=== PATIENT | female | born 1980 | race Native Hawaiian/Other Pacific Islander ===

== ENCOUNTER 2019-10-02 18:39 | Emergency (ER) | payer OTHER ==
[~2019-10-02] VITALS: Ht 167.6 cm; Wt 54.4 kg
[2019-10-02 18:55] LABS: PLATELET COUNT 350 K/uL (152-353)
[2019-10-02 18:59] LABS: POTASSIUM 3.7 mmol/L (3.6-5.2)
[2019-10-02 20:35] VITALS: BP 122/70; TEMP 98.1
== END 2019-10-02 20:35 | disposition home or self-care (01) ==
LOC: ED 18:39
PROVIDERS: Hospitalist
DX: J40 Bronchitis, not specified as acute or chronic (principal); J44.9 Chronic obstructive pulmonary disease, unspecified; Z20.828 Contact with and (suspected) exposure to other viral communicable diseases; Z87.891 Personal history of nicotine dependence
CPT/HCPCS: 80048; 85027; 87502; 87635; 87651; 96365; 96375; 99283; 99284; J0696; J2930; U00003

== ENCOUNTER 2020-02-04 06:10 | Emergency (ER) | payer OTHER ==
[~2020-02-04] VITALS: Ht 167.6 cm; Wt 54.4 kg
[2020-02-04 06:15] VITALS: TEMP 97.8
[2020-02-04 06:51] LABS: PLATELET COUNT 318 K/uL (152-353)
[2020-02-04 06:57] LABS: POTASSIUM 3.6 mmol/L (3.6-5.2)
[2020-02-04 08:45] VITALS: BP 118/73
== END 2020-02-04 08:46 | disposition home or self-care (01) ==
LOC: ED 06:10
PROVIDERS: Family Medicine
DX: J40 Bronchitis, not specified as acute or chronic (principal); J06.9 Acute upper respiratory infection, unspecified; R05 Cough; Z20.828 Contact with and (suspected) exposure to other viral communicable diseases
CPT/HCPCS: 80053; 82728; 85027; 85379; 87502; 87635; 87651; 94664; 96374; 99283; 99284; J2930; U0003

== ENCOUNTER 2020-02-05 08:26 | Emergency (ER) | payer OTHER ==
[~2020-02-05] VITALS: Ht 167.6 cm; Wt 54.4 kg
[2020-02-05 08:30] VITALS: TEMP 98.9
[2020-02-05 09:17] VITALS: BP 121/80
== END 2020-02-05 09:58 | disposition home or self-care (01) ==
LOC: ED 08:26
DX: J20.9 Acute bronchitis, unspecified (principal)
CPT/HCPCS: 94664; 99283

== ENCOUNTER 2020-02-22 11:33 | Emergency (ER) | payer OTHER ==
[~2020-02-22] VITALS: Ht 167.6 cm; Wt 52.2 kg
[2020-02-22 11:35] VITALS: TEMP 98.4
[2020-02-22 12:35] LABS: PLATELET COUNT 334 K/uL (152-353)
[2020-02-22 12:42] LABS: POTASSIUM 3.1 mmol/L (3.6-5.2); SODIUM 139 mmol/L (136-145)
[2020-02-22 15:00] VITALS: BP 100/62
== END 2020-02-22 15:00 | disposition home or self-care (01) ==
LOC: ED 11:33
DX: J44.1 Chronic obstructive pulmonary disease with (acute) exacerbation (principal)
CPT/HCPCS: 36600; 80053; 81025; 82805; 84484; 85027; 93005; 94664; 96374; 99284; J2930

== ENCOUNTER 2020-04-04 00:47 | Emergency (ER) | payer OTHER ==
[~2020-04-04] VITALS: Ht 167.6 cm; Wt 54.4 kg
[2020-04-04 00:47] VITALS: TEMP 97.8
[2020-04-04 01:31] VITALS: BP 106/79
== END 2020-04-04 01:32 | disposition home or self-care (01) ==
LOC: ED 00:50
DX: J44.1 Chronic obstructive pulmonary disease with (acute) exacerbation (principal)
CPT/HCPCS: 96372; 99282; J1020

== ENCOUNTER 2020-04-06 11:30 | Emergency (ER) | payer OTHER ==
[~2020-04-06] VITALS: Ht 167.6 cm; Wt 54.4 kg
[2020-04-06 11:31] VITALS: BP 126/54; TEMP 97.7
[2020-04-06 11:51] LABS: PLATELET COUNT 350 K/uL (152-353)
[2020-04-06 11:57] LABS: POTASSIUM 3.7 mmol/L (3.6-5.2)
== END 2020-04-06 13:25 | disposition home or self-care (01) ==
LOC: ED 11:30
PROVIDERS: Family Medicine
DX: J44.1 Chronic obstructive pulmonary disease with (acute) exacerbation (principal); R05 Cough
CPT/HCPCS: 80053; 85027; 94664; 99283; J1100

== ENCOUNTER 2020-09-14 15:17 | Outpatient (CLI) | payer OTHER | END 2020-09-14 19:21 | disposition home or self-care (01) | LOC: RAD 15:17 | PROVIDERS: ATTEND Nurse Practitioner Family | DX: M54.9 Dorsalgia, unspecified (principal); J44.9 Chronic obstructive pulmonary disease, unspecified; N76.0 Acute vaginitis; R31.9 Hematuria, unspecified ==

== ENCOUNTER 2021-03-15 15:57 | Emergency (ER) | payer OTHER ==
[~2021-03-15] VITALS: Ht 167.6 cm; Wt 53.5 kg
[2021-03-15 16:02] VITALS: TEMP 99.1
[2021-03-15 18:43] LABS: PLATELET COUNT 357 K/uL (152-353)
[2021-03-15 19:00] VITALS: BP 118/72
== END 2021-03-15 19:11 | disposition home or self-care (01) ==
LOC: ED 15:57
PROVIDERS: Hospitalist
DX: J18.9 Pneumonia, unspecified organism (principal); Z20.822 Contact with and (suspected) exposure to COVID-19; F17.210 Nicotine dependence, cigarettes, uncomplicated
CPT/HCPCS: 36415; 85027; 87502; 87635; 87651; 96372; 99283; J0696; J2930; U0003

== ENCOUNTER 2021-08-10 02:39 | Emergency (ER) | payer OTHER ==
[~2021-08-10] VITALS: Ht 167.6 cm; Wt 53.5 kg
[2021-08-10 03:46] LABS: PLATELET COUNT 378 K/uL (152-353)
[2021-08-10 03:50] LABS: POTASSIUM 4.9 mmol/L (3.6-5.2)
[2021-08-10 04:58] VITALS: BP 124/76; TEMP 97.1
== END 2021-08-10 04:58 | disposition home or self-care (01) ==
LOC: ED 02:39
PROVIDERS: Emergency Medicine Emergency Medical Services
DX: J44.1 Chronic obstructive pulmonary disease with (acute) exacerbation (principal); F17.210 Nicotine dependence, cigarettes, uncomplicated
CPT/HCPCS: 36415; 80048; 85027; 87040; 87077; 87185; 87186; 87205; 94664; 96360; 96361; 96365; 96375; 99284; J0696; J2930

== ENCOUNTER 2021-08-13 20:28 | Observation (INO) | payer OTHER ==
[~2021-08-13] VITALS: Ht 167.6 cm; Wt 53.1 kg
[2021-08-13 20:30] VITALS: BP 140/76; TEMP 98.7
[2021-08-13 20:56] LABS: POTASSIUM 3.6 mmol/L (3.6-5.2)
[2021-08-13 21:00] LABS: PLATELET COUNT 341 K/uL (152-353)
[2021-08-13 21:30] VITALS: BP 121/86
[2021-08-13 22:30] VITALS: BP 107/80
[2021-08-13 23:30] VITALS: BP 113/78
[2021-08-14] VITALS (8 sets, daily range): BP systolic 91–113; BP diastolic 52–81; TEMP 97.07–97.4; Ht 167.6 cm; Wt 53.1 kg
== END 2021-08-14 14:00 | disposition home or self-care (01) ==
LOC: ED 20:28 → MED/SURG 08-14 03:52
PROVIDERS: Family Medicine; ADMIT Internal Medicine; ATTEND Internal Medicine
DX: T40.1X1A Poisoning by heroin, accidental (unintentional), initial encounter (principal); Y92.89 Other specified places as the place of occurrence of the external cause; F19.20 Other psychoactive substance dependence, uncomplicated; R82.90 Unspecified abnormal findings in urine
CPT/HCPCS: 36415; 51702; 80053; 80307; 80320; 81000; 81025; 82550; 84484; 85027; 87088; 87635; 93005; 94664; 96361; 96365; 96372; 96375; 99220; 99284; G0378; J0696; J1650; J2405; J2920; J2930; J3480; U0003

== ENCOUNTER 2021-10-09 01:48 | Emergency (ER) | payer OTHER ==
[~2021-10-09] VITALS: Ht 167.6 cm; Wt 54.4 kg
[2021-10-09 05:45] VITALS: BP 103/58; TEMP 97.9
== END 2021-10-09 05:45 | disposition home or self-care (01) ==
LOC: ED 01:48
DX: J45.901 Unspecified asthma with (acute) exacerbation (principal)
CPT/HCPCS: 94664; 99283

== ENCOUNTER 2022-02-16 07:35 | Emergency (ER) | payer OTHER ==
[~2022-02-16] VITALS: Ht 167.6 cm; Wt 505.8 kg
[2022-02-16 07:35] VITALS: TEMP 98
[2022-02-16 09:35] VITALS: BP 102/78
== END 2022-02-16 09:49 | disposition still patient (30) ==
LOC: ED 07:35
PROC: 0HQFXZZ Repair Right Hand Skin, External Approach (ICD-10-PCS; principal; 2022-02-16)
PROC: 0HQDXZZ Repair Right Lower Arm Skin, External Approach (ICD-10-PCS; 2022-02-16)
DX: S60.221A Contusion of right hand, initial encounter (principal); S61.411A Laceration without foreign body of right hand, initial encounter; S51.811A Laceration without foreign body of right forearm, initial encounter; S61.511A Laceration without foreign body of right wrist, initial encounter; W22.09XA Striking against other stationary object, initial encounter; W25.XXXA Contact with sharp glass, initial encounter; Y92.89 Other specified places as the place of occurrence of the external cause
CPT/HCPCS: 90471; 90715; 96372; 99283; J0696; J1885; J7040

== ENCOUNTER 2022-02-26 12:43 | Emergency (ER) | payer OTHER ==
[~2022-02-26] VITALS: Ht 167.6 cm; Wt 52.2 kg
[2022-02-26 12:50] VITALS: BP 115/81; TEMP 99.2
== END 2022-02-26 13:44 | disposition home or self-care (01) ==
LOC: ED 12:43
DX: Z48.02 Encounter for removal of sutures (principal)